=== PATIENT | male | born 1965 | race Caucasian/White ===

== ENCOUNTER → 2024-10-31 | Outpatient (CLI) | payer MEDICARE, MEDICAID, SELFPAY ==
[2024-10-31 13:50] LABS: Basophils % (Auto) 0 % (0-2.5); Eosinophils # (Auto) 0.1 Thou/mm3 (0.0-0.5); Eosinophils % (Auto) 1 % (0-10); Hematocrit 38.6 % (41.0-53.0); Immature Granulocytes % (Auto) 0 % (0-0); Immature Granulocytes Auto 0.01 Thou/mm3 (0.00-0.00); Lymphocytes # (Auto) 2.1 Thou/mm3 (1.0-4.8); Lymphocytes % (Auto) 32 % (10-50); Mean Corpuscular HGB Conc 33.7 g/dl (31.0-37.0); Mean Corpuscular Hemoglobin 28.9 pg (25.0-35.0); Mean Corpuscular Volume 86 fL (80-100); Monocytes # (Auto) 0.5 Thou/mm3 (0.0-0.8); Monocytes % (Auto) 7 % (0-12); Neutrophils % (Auto) 60 % (37-80); Nucleated Red Blood Cell % 0 /100 WBC (0); Platelet Count 279 Thou/mm3 (140-440); RDW Standard Deviation 41.3 fL (35.1-43.9); White Blood Count 6.6 Thou/mm3 (3.8-10.6)
[2024-10-31 14:11] LABS: Carcinoembryonic Antigen < 0.0 ng/mL (0.0-5.0)
[2024-10-31 14:23] LABS: Alanine Aminotransferase 17 U/L (10-49); Albumin, Serum 4.6 gm/dL (3.4-4.8); Albumin/Globulin Ratio 1.3 (1.2-2.2); Alkaline Phosphatase 109 U/L (46-116); Anion Gap 10 (7-16); Aspartate Amino Transferase 17 U/L (0-34); BUN/Creatinine Ratio 18 Ratio (12-20); Bilirubin,Total 0.4 mg/dL (0.3-1.2); Blood Urea Nitrogen 16 mg/dL (9-23); Calcium 10.1 mg/dL (8.3-10.6); Calcium (Corrected) 10.1 mg/dL (8.5-10.1); Carbon Dioxide 28.5 mMol/L (20.0-31.0); Chloride 99 mMol/L (98-107); Creatinine (Component) 0.9 mg/dL (0.6-1.3); Globulin 3.5 gm/dL (2.3-3.5); Glucose 94 mg/dL (74-106); Osmolality,Calculated 275 (275-295); Potassium 3.9 mMol/L (3.4-5.1); Sodium 137 mMol/L (136-145); Total Protein 8.1 gm/dL (5.7-8.2); eGFR > 60 See Note
== END | disposition home or self-care (01) ==
LOC: COPL 13:01
PROVIDERS: PCP Physician Assistant; Referring Provider Nurse Practitioner Family; Visit Provider Nurse Practitioner Family
DX: C18.4 Malignant neoplasm of transverse colon (principal)
CPT/HCPCS: 36415; 80053; 82378; 85025

== ENCOUNTER → 2024-11-02 | Outpatient (CLI) | payer MEDICARE, MEDICAID, SELFPAY ==
--- NOTE | 2024-11-02 13:00 | XR_ITS ---
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 CTDI: vol (mGy) 7.63 DLP: (mGycm) 145 Technique: Multiple axial sections of the abdomen and pelvis have been obtained. 64 slice high-resolution scanner used. 3 mm axial sections have been obtained, post intravenous injection 60 cc [id number] 2-D sagittal, coronal reconstructions obtained. Low dose protocols were performed. One or more of the following dose reduction techniques were used; automated exposure control, adjustment of the mA and/or KV according to patient size, use of iterative reconstruction technique. Findings: No focal liver or splenic lesions No gallstones No pancreatic or adrenal mass No renal or ureteral calculi No abdominal or pelvic lymphadenopathy Aorta normal size Abundant stool in the colon No pericecal inflammatory change Urinary bladder wall thickening anteriorly up to 11 mm Prostatomegaly, transverse dimension 6.5 cm Moderate osteopenia IMPRESSION: No interval metastatic disease Urinary bladder wall thickening up to 11 mm, differential would include urinary tract outflow obstruction secondary to the patient's prostatomegaly, cystitis, early bladder carcinoma not excluded, clinical correlation follow-up recommended
== END | disposition home or self-care (01) ==
LOC: SCAT 12:13
PROVIDERS: PCP Physician Assistant; Referring Provider Nurse Practitioner Family; Visit Provider Nurse Practitioner Family
DX: N32.89 Other specified disorders of bladder (principal); C18.4 Malignant neoplasm of transverse colon
CPT/HCPCS: 74177; A4649; Q9967

== ENCOUNTER 2024-11-09 15:14 | Outpatient (RCR) | payer MEDICARE, MEDICAID, SELFPAY | END 2024-11-10 23:59 | disposition home or self-care (01) | LOC: SCTC 15:14 | PROVIDERS: PCP Physician Assistant; Referring Provider Physician Assistant; Visit Provider Nurse Practitioner Family | DX: Z08 Encounter for follow-up examination after completed treatment for malignant neoplasm (principal); Z85.038 Personal history of other malignant neoplasm of large intestine | CPT/HCPCS: 99212; G0463 ==

== ENCOUNTER → 2025-01-16 | Outpatient (CLI) | payer MEDICARE, MEDICAID, SELFPAY ==
[2025-01-16 08:45] LABS: Glucose Estimated Average 137 mg/dL (80-131); Hemoglobin A1C 6.4 % Hgb (4.8-6.0)
[2025-01-16 08:55] LABS: Prostate Specific Antigen 1.67 ng/mL (0-4.00)
[2025-01-16 08:57] LABS: Basophils % (Auto) 0 % (0-2.5); Eosinophils # (Auto) 0.1 Thou/mm3 (0.0-0.5); Eosinophils % (Auto) 1 % (0-10); Hematocrit 37.5 % (41.0-53.0); Hemoglobin 12.9 g/dL (13.5-16.0); Immature Granulocytes % (Auto) 0 % (0-0); Immature Granulocytes Auto 0.01 Thou/mm3 (0.00-0.00); Lymphocytes # (Auto) 1.8 Thou/mm3 (1.0-4.8); Lymphocytes % (Auto) 34 % (10-50); Mean Corpuscular HGB Conc 34.4 g/dl (31.0-37.0); Mean Corpuscular Hemoglobin 28.7 pg (25.0-35.0); Mean Corpuscular Volume 84 fL (80-100); Monocytes # (Auto) 0.4 Thou/mm3 (0.0-0.8); Monocytes % (Auto) 7 % (0-12); Neutrophils # (Auto) 3.1 Thou/mm3 (1.8-7.7); Neutrophils % (Auto) 57 % (37-80); Nucleated Red Blood Cell % 0 /100 WBC (0); Platelet Count 180 Thou/mm3 (140-440); RDW Standard Deviation 41.3 fL (35.1-43.9); Red Blood Count 4.49 Miln/mm3 (4.50-5.90); White Blood Count 5.4 Thou/mm3 (3.8-10.6)
[2025-01-16 08:58] LABS: Creatinine MALB Rnd Ur 41 mg/dL (30-125); Microalbumin Creat Ratio 37 mg/gCrea (<30); Microalbumin, Random Urine 15 mg/L (0-300)
[2025-01-16 09:00] LABS: Carcinoembryonic Antigen < 0.0 ng/mL (0.0-5.0); Vitamin D 25 Hydroxy Total 14.8 ng/mL (7.3-40.2)
[2025-01-16 09:06] LABS: Alanine Aminotransferase 19 U/L (10-49); Albumin, Serum 4.5 gm/dL (3.4-4.8); Albumin/Globulin Ratio 1.4 (1.2-2.2); Alkaline Phosphatase 88 U/L (46-116); Anion Gap 9 (7-16); Aspartate Amino Transferase 21 U/L (0-34); BUN/Creatinine Ratio 13 Ratio (12-20); Bilirubin,Total 0.5 mg/dL (0.3-1.2); Blood Urea Nitrogen 12 mg/dL (9-23); Calcium 9.2 mg/dL (8.3-10.6); Calcium (Corrected) 9.2 mg/dL (8.5-10.1); Carbon Dioxide 29.9 mMol/L (20.0-31.0); Cardiac Risk Estimate 2.6 RATIO (4.0-6.7); Chloride 101 mMol/L (98-107); Cholesterol 118 mg/dL (132-200); Creatinine (Component) 0.9 mg/dL (0.6-1.3); Globulin 3.2 gm/dL (2.3-3.5); Glucose 112 mg/dL (74-106); HDL Cholesterol 45 mg/dL (40-60); LDL Cholesterol,Calculated 57 mg/dL (0-130); Osmolality,Calculated 280 (275-295); Potassium 4.2 mMol/L (3.4-5.1); Sodium 140 mMol/L (136-145); Thyroid Stimulating Hormone 3.87 uIU/mL (0.55-4.78); Total Protein 7.7 gm/dL (5.7-8.2); Triglycerides 79 mg/dL (30-150); eGFR > 60 See Note
== END | disposition home or self-care (01) ==
LOC: COPL 07:30
PROVIDERS: PCP Physician Assistant; Referring Provider Urology; Visit Provider Nurse Practitioner Family
DX: Z00.00 Encounter for general adult medical examination without abnormal findings (principal); E78.5 Hyperlipidemia, unspecified; E11.65 Type 2 diabetes mellitus with hyperglycemia; C18.4 Malignant neoplasm of transverse colon; N40.1 Benign prostatic hyperplasia with lower urinary tract symptoms
CPT/HCPCS: 36415; 80053; 80061; 82043; 82306; 82378; 82570; 83036; 84153; 84443; 85025

== ENCOUNTER → 2025-01-30 | Outpatient (BNVA) | payer MEDICARE, MEDICAID, SELFPAY | END | disposition home or self-care (01) | PROVIDERS: PCP Physician Assistant; Referring Provider Physician Assistant; Visit Provider Urology | DX: N40.1 Benign prostatic hyperplasia with lower urinary tract symptoms (principal); N13.8 Other obstructive and reflux uropathy; C18.9 Malignant neoplasm of colon, unspecified; Z92.21 Personal history of antineoplastic chemotherapy; I10 Essential (primary) hypertension; E11.9 Type 2 diabetes mellitus without complications; E78.00 Pure hypercholesterolemia, unspecified | CPT/HCPCS: 81003; 99212; G0463 ==

== ENCOUNTER 2025-02-06 09:06 | Outpatient (RCR) | payer MEDICARE, MEDICAID, SELFPAY | END 2025-02-10 23:59 | disposition home or self-care (01) | LOC: SCTC 09:06 | PROVIDERS: PCP Physician Assistant; Referring Provider Physician Assistant; Visit Provider Nurse Practitioner Family | DX: Z08 Encounter for follow-up examination after completed treatment for malignant neoplasm (principal); Z85.038 Personal history of other malignant neoplasm of large intestine; N40.0 Benign prostatic hyperplasia without lower urinary tract symptoms; N32.89 Other specified disorders of bladder | CPT/HCPCS: 99212; G0463 ==

== ENCOUNTER → 2025-03-13 | Outpatient (BNVA) | payer MEDICARE, MEDICAID, SELFPAY | END | disposition home or self-care (01) | PROVIDERS: PCP Physician Assistant; Referring Provider Physician Assistant; Visit Provider Urology | DX: N32.89 Other specified disorders of bladder (principal); N40.1 Benign prostatic hyperplasia with lower urinary tract symptoms; N13.8 Other obstructive and reflux uropathy; C18.9 Malignant neoplasm of colon, unspecified; Z92.21 Personal history of antineoplastic chemotherapy; Z90.49 Acquired absence of other specified parts of digestive tract; I10 Essential (primary) hypertension; E78.00 Pure hypercholesterolemia, unspecified; E11.9 Type 2 diabetes mellitus without complications | CPT/HCPCS: 52000; 81003; 96372; A4217; A4649; C1894; J1580; A9270 ==

== ENCOUNTER → 2025-04-30 | Outpatient (CLI) | payer MEDICARE, MEDICAID, SELFPAY ==
[2025-04-30 17:40] LABS: Basophils # (Auto) 0.0 Thou/mm3 (0.0-0.2); Basophils % (Auto) 0 % (0-2.5); Eosinophils # (Auto) 0.1 Thou/mm3 (0.0-0.5); Eosinophils % (Auto) 1 % (0-10); Hematocrit 36.3 % (41.0-53.0); Hemoglobin 12.0 g/dL (13.5-16.0); Immature Granulocytes Auto 0.01 Thou/mm3 (0.00-0.00); Lymphocytes # (Auto) 2.1 Thou/mm3 (1.0-4.8); Lymphocytes % (Auto) 32 % (10-50); Mean Corpuscular HGB Conc 33.1 g/dl (31.0-37.0); Mean Corpuscular Hemoglobin 28.8 pg (25.0-35.0); Mean Corpuscular Volume 87 fL (80-100); Monocytes # (Auto) 0.5 Thou/mm3 (0.0-0.8); Monocytes % (Auto) 8 % (0-12); Neutrophils # (Auto) 3.8 Thou/mm3 (1.8-7.7); Neutrophils % (Auto) 59 % (37-80); Nucleated Red Blood Cell # 0.00 Thou/mm3 (0.00-0.00); Nucleated Red Blood Cell % 0 /100 WBC (0); Platelet Count 205 Thou/mm3 (140-440); RDW Standard Deviation 41.9 fL (35.1-43.9); Red Blood Count 4.17 Miln/mm3 (4.50-5.90); White Blood Count 6.4 Thou/mm3 (3.8-10.6)
[2025-04-30 17:49] LABS: Carcinoembryonic Antigen < 0.0 ng/mL (0.0-5.0)
[2025-04-30 17:51] LABS: Alanine Aminotransferase 11 U/L (10-49); Albumin, Serum 4.5 gm/dL (3.4-4.8); Albumin/Globulin Ratio 1.7 (1.2-2.2); Alkaline Phosphatase 90 U/L (46-116); Anion Gap 11 (7-16); Aspartate Amino Transferase 15 U/L (0-34); BUN/Creatinine Ratio 14 Ratio (12-20); Bilirubin,Total 0.3 mg/dL (0.3-1.2); Blood Urea Nitrogen 13 mg/dL (9-23); Calcium 10.0 mg/dL (8.3-10.6); Calcium (Corrected) 10.0 mg/dL (8.5-10.1); Carbon Dioxide 24.8 mMol/L (20.0-31.0); Chloride 106 mMol/L (98-107); Creatinine (Component) 0.9 mg/dL (0.6-1.3); Globulin 2.7 gm/dL (2.3-3.5); Glucose 119 mg/dL (74-106); Osmolality,Calculated 284 (275-295); Potassium 3.9 mMol/L (3.4-5.1); Sodium 142 mMol/L (136-145); Total Protein 7.2 gm/dL (5.7-8.2); eGFR > 60 See Note
== END | disposition home or self-care (01) ==
LOC: SCTO 16:26
PROVIDERS: PCP Physician Assistant; Referring Provider Nurse Practitioner Family; Visit Provider Nurse Practitioner Family
DX: C18.4 Malignant neoplasm of transverse colon (principal)
CPT/HCPCS: 36415; 80053; 82378; 85025

== ENCOUNTER 2025-05-08 09:16 | Outpatient (RCR) | payer MEDICARE, MEDICAID, SELFPAY | END 2025-05-13 23:59 | disposition home or self-care (01) | LOC: SCTC 09:16 | PROVIDERS: PCP Physician Assistant; Referring Provider Physician Assistant; Visit Provider Nurse Practitioner Family | DX: Z08 Encounter for follow-up examination after completed treatment for malignant neoplasm (principal); Z85.038 Personal history of other malignant neoplasm of large intestine; Z90.49 Acquired absence of other specified parts of digestive tract; N40.0 Benign prostatic hyperplasia without lower urinary tract symptoms | CPT/HCPCS: 99212; G0463 ==

== ENCOUNTER → 2025-05-29 | Outpatient (CLI) | payer MEDICARE, MEDICAID, SELFPAY ==
[2025-05-29 10:04] LABS: Prostate Specific Antigen 1.77 ng/mL (0-4.00)
== END | disposition home or self-care (01) ==
PROVIDERS: PCP Physician Assistant; Referring Provider Urology; Visit Provider Urology
DX: Z12.5 Encounter for screening for malignant neoplasm of prostate (principal)
CPT/HCPCS: 36415; 84153

== ENCOUNTER → 2025-06-04 | Outpatient (BNVA) | payer MEDICARE, MEDICAID, SELFPAY | END | disposition home or self-care (01) | PROVIDERS: PCP Physician Assistant; Referring Provider Physician Assistant; Visit Provider Urology | DX: N40.1 Benign prostatic hyperplasia with lower urinary tract symptoms (principal); N13.8 Other obstructive and reflux uropathy; C18.9 Malignant neoplasm of colon, unspecified; E11.9 Type 2 diabetes mellitus without complications; N32.89 Other specified disorders of bladder; E66.9 Obesity, unspecified; I10 Essential (primary) hypertension; E78.00 Pure hypercholesterolemia, unspecified | CPT/HCPCS: 81003; 99212; G0463 ==

== ENCOUNTER → 2025-08-07 | Outpatient (CLI) | payer MEDICARE, MEDICAID, SELFPAY ==
[2025-08-07 07:32] LABS: Misc Send Out* See Sep Rpt
[2025-08-07 08:42] LABS: Basophils # (Auto) 0.0 Thou/mm3 (0.0-0.2); Basophils % (Auto) 0 % (0-2.5); Eosinophils # (Auto) 0.0 Thou/mm3 (0.0-0.5); Eosinophils % (Auto) 1 % (0-10); Hematocrit 38.7 % (41.0-53.0); Hemoglobin 13.0 g/dL (13.5-16.0); Immature Granulocytes Auto 0.01 Thou/mm3 (0.00-0.00); Lymphocytes # (Auto) 1.8 Thou/mm3 (1.0-4.8); Lymphocytes % (Auto) 32 % (10-50); Mean Corpuscular HGB Conc 33.6 g/dl (31.0-37.0); Mean Corpuscular Hemoglobin 28.8 pg (25.0-35.0); Mean Corpuscular Volume 86 fL (80-100); Monocytes # (Auto) 0.4 Thou/mm3 (0.0-0.8); Monocytes % (Auto) 7 % (0-12); Neutrophils # (Auto) 3.4 Thou/mm3 (1.8-7.7); Neutrophils % (Auto) 61 % (37-80); Nucleated Red Blood Cell # 0.00 Thou/mm3 (0.00-0.00); Nucleated Red Blood Cell % 0 /100 WBC (0); Platelet Count 214 Thou/mm3 (140-440); RDW Standard Deviation 40.4 fL (35.1-43.9); Red Blood Count 4.51 Miln/mm3 (4.50-5.90); White Blood Count 5.6 Thou/mm3 (3.8-10.6)
[2025-08-07 09:04] LABS: Alanine Aminotransferase 19 U/L (10-49); Albumin, Serum 4.9 gm/dL (3.4-4.8); Albumin/Globulin Ratio 1.8 (1.2-2.2); Anion Gap 12 (7-16); Aspartate Amino Transferase 20 U/L (0-34); BUN/Creatinine Ratio 17 Ratio (12-20); Bilirubin,Total 0.5 mg/dL (0.3-1.2); Blood Urea Nitrogen 15 mg/dL (9-23); Calcium 10.3 mg/dL (8.3-10.6); Calcium (Corrected) 10.3 mg/dL (8.5-10.1); Carbon Dioxide 25.2 mMol/L (20.0-31.0); Chloride 101 mMol/L (98-107); Creatinine (Component) 0.9 mg/dL (0.6-1.3); Globulin 2.7 gm/dL (2.3-3.5); Glucose 132 mg/dL (74-106); Osmolality,Calculated 278 (275-295); Potassium 3.8 mMol/L (3.4-5.1); Sodium 138 mMol/L (136-145); Total Protein 7.6 gm/dL (5.7-8.2); eGFR > 60 See Note
[2025-08-07 09:21] LABS: Alkaline Phosphatase 89 U/L (46-116)
[2025-08-07 12:49] LABS: Carcinoembryonic Antigen < 0.0 ng/mL (0.0-5.0)
== END | disposition home or self-care (01) ==
LOC: SCTO 07:00
PROVIDERS: PCP Physician Assistant; Referring Provider Nurse Practitioner Family; Visit Provider Nurse Practitioner Family
DX: C18.4 Malignant neoplasm of transverse colon (principal)
CPT/HCPCS: 36415; 80053; 82378; 85025

== ENCOUNTER 2025-08-15 08:46 | Outpatient (RCR) | payer MEDICARE, MEDICAID, SELFPAY | END 2025-09-12 23:59 | disposition home or self-care (01) | LOC: SCTC 08:46 | PROVIDERS: PCP Physician Assistant; Referring Provider Physician Assistant; Visit Provider Nurse Practitioner Family | DX: Z08 Encounter for follow-up examination after completed treatment for malignant neoplasm (principal); Z85.038 Personal history of other malignant neoplasm of large intestine; N40.0 Benign prostatic hyperplasia without lower urinary tract symptoms | CPT/HCPCS: 99212; G0463 ==

== ENCOUNTER → 2025-08-20 | Outpatient (CLI) | payer MEDICARE, MEDICAID, SELFPAY ==
[2025-08-20 18:36] LABS: Creatinine MALB Rnd Ur 40 mg/dL (30-125); Microalbumin Creat Ratio 40 mg/gCrea (<30); Microalbumin, Random Urine 16 mg/L (0-300)
[2025-08-20 18:36] LABS: Anion Gap 11 (7-16); BUN/Creatinine Ratio 14 Ratio (12-20); Blood Urea Nitrogen 13 mg/dL (9-23); Calcium 9.5 mg/dL (8.3-10.6); Carbon Dioxide 27.5 mMol/L (20.0-31.0); Chloride 102 mMol/L (98-107); Creatinine (Component) 0.9 mg/dL (0.6-1.3); Glucose 107 mg/dL (74-106); Osmolality,Calculated 279 (275-295); Potassium 3.9 mMol/L (3.4-5.1); Sodium 140 mMol/L (136-145); eGFR > 60 See Note
[2025-08-20 20:11] LABS: Glucose Estimated Average 140 mg/dL (80-131); Hemoglobin A1C 6.5 % Hgb (4.8-6.0)
== END | disposition home or self-care (01) ==
LOC: COPL 15:49
PROVIDERS: PCP Physician Assistant; Referring Provider Physician Assistant; Visit Provider Physician Assistant
DX: E11.65 Type 2 diabetes mellitus with hyperglycemia (principal)
CPT/HCPCS: 36415; 80048; 82043; 82570; 83036